=== PATIENT | male | born 2000 | race Caucasian/White ===

== ENCOUNTER 2021-05-17 16:30 | Emergency (ER) | payer SELFPAY ==
[2021-05-17 17:13] VITALS: BP 133/79; PULSE 95; TEMP 98.1; BMI 29.7
== END 2021-05-17 18:51 | disposition home or self-care (01) ==
LOC: JERFT 16:30
DX: R07.9 Chest pain, unspecified (principal)
CPT/HCPCS: 71046-TC-FY; 93005; 93010; 99285-25